=== PATIENT | male | born 1970 | race Caucasian/White ===

== ENCOUNTER 2017-11-09 10:37 | Emergency (ER) | payer MEDICARE ==
[2017-11-09 12:37] LABS: BASOPHILS 0.3 % (0-2); EOSINOPHILS 2.4 % (0-7); HEMATOCRIT 46.6 % (42.0-54.0); HEMOGLOBIN 16.2 g/dL (13.5-17.5); IMMATURE GRANULOCYTES 0.4 % (0-5); LYMPHOCYTES 32.2 % (15-50); MCH 32.2 pg (26.0-34.0); MCHC 34.8 g/dL (31.0-37.0); MCV 92.6 fL (80.0-100.0); MEAN PLATELET VOLUME 9.3 fL (7.4-10.4); MONOCYTES 10.9 % (2-11); NEUTROPHILS 53.8 % (40-80); PLATELET COUNT 166 10x3/uL (130-400); RBC 5.03 10x6/uL (4.20-6.10); RDW 12.2 % (11.5-14.5); WBC 12.1 10x3/uL (4.8-10.8)
== END 2017-11-09 13:58 | disposition home or self-care (01) ==
LOC: D.ER 10:37
PROVIDERS: Physician Assistant
DX: L03.115 Cellulitis of right lower limb (principal); B35.3 Tinea pedis; F17.200 Nicotine dependence, unspecified, uncomplicated